=== PATIENT | male | born 1950 | race Hispanic/Latino ===

== ENCOUNTER 2021-12-01 21:04 | Inpatient (IN) | payer OTHER ==
[~2021-12-01] VITALS: Ht 162.6 cm; Wt 57.0 kg
[2021-12-01 22:15] LABS: ALBUMIN 1.4 g/dL (3.5-5.0); CREATININE 1.1 mg/dL (0.5-1.5); TOTAL PROTEIN, SERUM 6.3 g/dL (6.0-8.3)
[2021-12-01] MEDS ORDERED: DEXTROSE 50%-WATER 50 ML DISP.SYRIN IV ONE (22:22)
[2021-12-01 22:24] LABS: BASOPHILS % (AUTO) 0.1 % (0.0-5.0); EOSINOPHILS % (AUTO) 0.1 % (0.0-8.0); HEMATOCRIT 28.2 % (42-54); LYMPHOCYTES % (AUTO) 7.2 % (21.0-51.0); MEAN CORPUSCULAR HEMOGLOBIN 34.3 pg (27.0-33.0); MEAN CORPUSCULAR HGB CONC 33.7 g/dL (32.0-36.0); MEAN CORPUSCULAR VOLUME 101.8 fL (79-99); MONOCYTES % (AUTO) 3.4 % (3.0-13.0); NUCLEATED RED BLOOD CELLS 0.7 % (0.0-0.19); PLATELET COUNT (AUTO) 239 K/uL (130-400); RED BLOOD CELL COUNT(AUTO) 2.77 MIL/uL (4.50-6.20); RED CELL DISTRIBUTION WIDTH 25.3 % (11.0-15.5); WHITE BLOOD COUNT (AUTO) 9.2 K/uL (4.8-10.8)
[2021-12-01] MEDS ORDERED: 0.9%NACL 1000ML 1,000 ML IV ONE (22:55)
[2021-12-01] MEDS ORDERED: ZOSYN 3.375GM +NS 50ML IV ONE (22:56)
[2021-12-01] MEDS ORDERED: ONDANSETRON 4MG INJ IVP PRN (23:30)
[2021-12-02] MEDS: ZOSYN 3.375GM +NS 50ML IV SCH ×3 (00:03→15:40)
[2021-12-02] MEDS: 0.9%NACL 1000ML 1,000 ML IV SCH ×2 (00:03→13:24)
[2021-12-02 01:00] VITALS: BP 117/70
[2021-12-02 04:00] VITALS: BP 102/70
[2021-12-02 06:34] LABS: BASOPHILS % (AUTO) 0.1 % (0.0-5.0); EOSINOPHILS % (AUTO) 0.1 % (0.0-8.0); HEMATOCRIT 25.6 % (42-54); LYMPHOCYTES % (AUTO) 6.5 % (21.0-51.0); MEAN CORPUSCULAR HEMOGLOBIN 34.5 pg (27.0-33.0); MEAN CORPUSCULAR VOLUME 101.6 fL (79-99); MONOCYTES % (AUTO) 2.7 % (3.0-13.0); NEUTROPHILS % (AUTO) 88.7 % (40.0-77.0); NUCLEATED RED BLOOD CELLS 0.8 % (0.0-0.19); PLATELET COUNT (AUTO) 205 K/uL (130-400); RED BLOOD CELL COUNT(AUTO) 2.52 MIL/uL (4.50-6.20); RED CELL DISTRIBUTION WIDTH 25.3 % (11.0-15.5); WHITE BLOOD COUNT (AUTO) 8.9 K/uL (4.8-10.8)
[2021-12-02 06:41] LABS: POTASSIUM 3.6 mmol/L (3.5-5.1)
[2021-12-02 08:00] VITALS: BP 109/68
[2021-12-02 11:55] VITALS: BP 97/53
[2021-12-02 12:58] LABS: INR 1.43 (0.85-1.15); PROTHROMBIN TIME 15.3 SEC (9.6-11.6)
[2021-12-02 13:00] LABS: PARTIAL THROMBOPLASTIN TIME 42.1 SEC (26.3-35.5)
[2021-12-02] MEDS ORDERED: PHARMACY COMMUNICATION MISC SCH (13:00)
[2021-12-02] MEDS ORDERED: ALBUMIN (HUMAN) 25% 100 ML IV ONE (13:00)
[2021-12-02] MEDS: IPRATROPIUM/ALBUTEROL SULFATE 3 ML SOLUTION IH SCH ×3 (13:20→23:28)
[2021-12-02] MEDS: NYSTATIN 100000 UNIT/ML 5ML UDCUP PO SCH ×3 (13:24→20:46)
[2021-12-02] MEDS: MIDODRINE HCL 5 MG TABLET PO SCH ×2 (14:49→20:46)
[2021-12-02 16:00] VITALS: BP 106/64
[2021-12-02] MEDS: MORPHINE 2 MG SYG IVP PRN (16:53)
[2021-12-02] MEDS ORDERED: SODI1TAB4 PO (17:59)
[2021-12-02] MEDS ORDERED: OMEP20CA12 PO (17:59)
[2021-12-02] MEDS ORDERED: AXIT5TAB PO (18:00)
[2021-12-02] MEDS ORDERED: CARV6.25 PO (18:00)
[2021-12-02] MEDS ORDERED: FURO40TA5 PO (18:01)
[2021-12-02 20:00] VITALS: BP 125/61
[2021-12-02] MEDS: DRONABINOL 2.5 MG CAP PO SCH (20:45)
[2021-12-02] MEDS: LACTULOSE 20 GM/30 ML UDCUP PO SCH (20:45)
[2021-12-02 22:04] LABS: APPEARANCE,URINE CLOUDY (CLEAR); BILIRUBIN,URINE LARGE (NEGATIVE); COLOR,URINE AMBER (YELLOW); GLUCOSE, URINE (UA) 100 mg/dL (NEGATIVE); KETONES,URINE 5 mg/dL (NEGATIVE); LEUKOCYTE ESTERASE ,URINE NEGATIVE (NEGATIVE); NITRATE,URINE NEGATIVE (NEGATIVE); OCCULT BLOOD,URINE SMALL (NEGATIVE); PH,URINE 5.5 (5.0-8.0); PROTEIN,URINE 30 mg/dL (NEGATIVE)
[2021-12-02 22:10] LABS: AMORPHOUS SEDIMENT,UR Rare /LPF (None Seen); BACTERIA,URINE Few /HPF (None Seen); RBC,URINE 0-1 /HPF (0-1); SQUAMOUS EPITHELIAL CELL,UR Rare /HPF (0-2); WBC,URINE 0-1 /HPF (0-1)
[2021-12-03] VITALS: BP 103/48
[2021-12-03] MEDS: ZOSYN 3.375GM +NS 50ML IV SCH ×4 (00:02→21:50)
[2021-12-03] MEDS: MORPHINE 2 MG SYG IVP PRN ×2 (00:07→16:15)
[2021-12-03 04:00] VITALS: BP 113/55
[2021-12-03] MEDS: 0.9%NACL 1000ML 1,000 ML IV SCH (04:08)
[2021-12-03 05:11] LABS: HEMATOCRIT 25.7 % (42-54); MEAN CORPUSCULAR HEMOGLOBIN 33.7 pg (27.0-33.0); MEAN CORPUSCULAR HGB CONC 33.1 g/dL (32.0-36.0); RED BLOOD CELL COUNT(AUTO) 2.52 MIL/uL (4.50-6.20); RED CELL DISTRIBUTION WIDTH 25.6 % (11.0-15.5); WHITE BLOOD COUNT (AUTO) 12.4 K/uL (4.8-10.8)
[2021-12-03 05:37] LABS: ALBUMIN 1.3 g/dL (3.5-5.0); CREATININE 1.2 mg/dL (0.5-1.5); POTASSIUM 3.5 mmol/L (3.5-5.1); TOTAL PROTEIN, SERUM 6.1 g/dL (6.0-8.3)
[2021-12-03] MEDS ORDERED: DEXTROSE 50%-WATER 50 ML DISP.SYRIN IV ONE (05:41)
[2021-12-03] MEDS ORDERED: GLUCAGON 1MG KIT 1 MG ML IM PRN (06:00)
[2021-12-03] MEDS: DEXTROSE 50%-WATER 50 ML DISP.SYRIN IV PRN (06:07)
[2021-12-03] MEDS: IPRATROPIUM/ALBUTEROL SULFATE 3 ML SOLUTION IH SCH ×4 (06:39→23:18)
[2021-12-03 06:43] LABS: ABG BASE EXCESS 1.6 mmol/L (-2.0-3.0); ABG HCO3 26.2 mmol/L (21.0-28.0); ABG OXYGEN SATURATION 91.3 % (95.0-99.0); ABG PCO2 41 mmHg (35-48)
[2021-12-03 08:00] VITALS: BP 106/73
[2021-12-03] MEDS: LACTULOSE 20 GM/30 ML UDCUP PO SCH ×2 (08:52→21:00)
[2021-12-03] MEDS: NYSTATIN 100000 UNIT/ML 5ML UDCUP PO SCH ×4 (08:53→21:49)
[2021-12-03] MEDS: DRONABINOL 2.5 MG CAP PO SCH (08:53)
[2021-12-03] MEDS: MIDODRINE HCL 5 MG TABLET PO SCH (08:53)
[2021-12-03] MEDS: DEXTROSE 5 % AND 0.9 % NACL 1,000 ML IV SCH ×2 (08:59→21:20)
[2021-12-03 12:00] VITALS: BP 102/71
[2021-12-03] MEDS ORDERED: METOPROLOL TARTRATE 1 MG/ML 5ML VIAL IV PRN (12:30)
[2021-12-03 16:00] VITALS: BP 101/71
[2021-12-03 20:51] VITALS: BP 109/69
[2021-12-04] VITALS (8 sets, daily range): BP systolic 93–146; BP diastolic 60–112
[2021-12-04 05:36] LABS: HEMATOCRIT 24.4 % (42-54); MEAN CORPUSCULAR HEMOGLOBIN 35.5 pg (27.0-33.0); MEAN CORPUSCULAR VOLUME 104.3 fL (79-99); NUCLEATED RED BLOOD CELLS 1.1 % (0.0-0.19); RED BLOOD CELL COUNT(AUTO) 2.34 MIL/uL (4.50-6.20); WHITE BLOOD COUNT (AUTO) 12.4 K/uL (4.8-10.8)
[2021-12-04] MEDS: ZOSYN 3.375GM +NS 50ML IV SCH ×2 (06:07→15:52)
[2021-12-04 06:11] LABS: ALBUMIN 1.2 g/dL (3.5-5.0); CREATININE 1.3 mg/dL (0.5-1.5); POTASSIUM 3.2 mmol/L (3.5-5.1); TOTAL PROTEIN, SERUM 5.9 g/dL (6.0-8.3)
[2021-12-04] MEDS: IPRATROPIUM/ALBUTEROL SULFATE 3 ML SOLUTION IH SCH ×3 (06:36→18:55)
[2021-12-04] MEDS: PANTOPRAZOLE 40 MG/VIAL IVP SCH (08:33)
[2021-12-04] MEDS: LACTULOSE 20 GM/30 ML UDCUP PO SCH ×2 (08:36→21:00)
[2021-12-04] MEDS: NYSTATIN 100000 UNIT/ML 5ML UDCUP PO SCH ×4 (09:47→21:33)
[2021-12-04] MEDS: MORPHINE 2 MG SYG IVP PRN ×2 (09:48→21:45)
[2021-12-04] MEDS: DEXTROSE 5 % AND 0.9 % NACL 1,000 ML IV SCH (15:57)
[2021-12-05] VITALS (8 sets, daily range): BP systolic 85–114; BP diastolic 57–76
[2021-12-05] MEDS: IPRATROPIUM/ALBUTEROL SULFATE 3 ML SOLUTION IH SCH ×4 (00:19→18:29)
[2021-12-05] MEDS: ZOSYN 3.375GM +NS 50ML IV SCH ×3 (00:23→15:49)
[2021-12-05] MEDS: DEXTROSE 5 % AND 0.9 % NACL 1,000 ML IV SCH (04:36)
[2021-12-05 05:40] LABS: BASOPHILS % (AUTO) 0.1 % (0.0-5.0); EOSINOPHILS % (AUTO) 0.1 % (0.0-8.0); LYMPHOCYTES % (AUTO) 3.6 % (21.0-51.0); MEAN CORPUSCULAR HEMOGLOBIN 34.4 pg (27.0-33.0); MEAN CORPUSCULAR HGB CONC 32.5 g/dL (32.0-36.0); MEAN CORPUSCULAR VOLUME 106.1 fL (79-99); MONOCYTES % (AUTO) 1.8 % (3.0-13.0); NEUTROPHILS % (AUTO) 90.4 % (40.0-77.0); NUCLEATED RED BLOOD CELLS 1.3 % (0.0-0.19); PLATELET COUNT (AUTO) 198 K/uL (130-400); RED CELL DISTRIBUTION WIDTH 25.8 % (11.0-15.5); WHITE BLOOD COUNT (AUTO) 13.8 K/uL (4.8-10.8)
[2021-12-05 05:42] LABS: HEMATOCRIT 19.1 % (42-54)
[2021-12-05 05:55] LABS: ALBUMIN 1.1 g/dL (3.5-5.0); CREATININE 1.6 mg/dL (0.5-1.5); MAGNESIUM 2.4 mg/dL (1.80-2.40); POTASSIUM 4.1 mmol/L (3.5-5.1); TOTAL PROTEIN, SERUM 5.3 g/dL (6.0-8.3)
[2021-12-05] MEDS: PANTOPRAZOLE 40 MG/VIAL IVP SCH (08:22)
[2021-12-05] MEDS: LACTULOSE 20 GM/30 ML UDCUP PO SCH ×2 (08:23→21:00)
[2021-12-05] MEDS: NYSTATIN 100000 UNIT/ML 5ML UDCUP PO SCH ×4 (08:23→21:00)
[2021-12-05] MEDS ORDERED: SODIUM CL 4MEQ/ML 30ML 154 MEQ in DEXTROSE 10%-WATER 961.5 ML IV SCH (09:30)
[2021-12-05] MEDS: DEXTROSE 10%-WATER 1,000 ML IV SCH (10:30)
[2021-12-05] MEDS: MORPHINE 2 MG SYG IVP PRN ×2 (14:28→17:18)
[2021-12-05] MEDS ORDERED: VANCOMYCIN PROTOCOL PER PHARMACY IV SCH (16:30)
[2021-12-05] MEDS ORDERED: VANCOMYCIN 1G/250ML KIT 250 ML IV ONE (17:00)
[2021-12-05] MEDS ORDERED: M.V.I. IV [ADULT] 10 ML, MULTITRACE-4 ADULT 10ML VIAL 3 ML in CLINIMIX-E 5%AA /D15%W 2... IV ONE (18:00)
[2021-12-06] VITALS (21 sets, daily range): BP systolic 73–99; BP diastolic 38–57
[2021-12-06] MEDS: MORPHINE 2 MG SYG IVP PRN (00:50)
[2021-12-06] MEDS ORDERED: [UNRECOGNIZED DRUG - OTHER] IV ONE (04:30)
[2021-12-06 06:17] LABS: BASOPHILS % (AUTO) 0.2 % (0.0-5.0); EOSINOPHILS % (AUTO) 0.1 % (0.0-8.0); HEMATOCRIT 31.2 % (42-54); LYMPHOCYTES % (AUTO) 2.9 % (21.0-51.0); MEAN CORPUSCULAR HEMOGLOBIN 32.2 pg (27.0-33.0); MEAN CORPUSCULAR HGB CONC 34.3 g/dL (32.0-36.0); MONOCYTES % (AUTO) 1.7 % (3.0-13.0); NEUTROPHILS % (AUTO) 89.9 % (40.0-77.0); NUCLEATED RED BLOOD CELLS 5.1 % (0.0-0.19); PLATELET COUNT (AUTO) 89 K/uL (130-400); RED BLOOD CELL COUNT(AUTO) 3.32 MIL/uL (4.50-6.20); RED CELL DISTRIBUTION WIDTH 21.2 % (11.0-15.5); WHITE BLOOD COUNT (AUTO) 17.4 K/uL (4.8-10.8)
[2021-12-06] MEDS: IPRATROPIUM/ALBUTEROL SULFATE 3 ML SOLUTION IH SCH ×2 (06:55→11:28)
[2021-12-06 06:56] LABS: ALBUMIN 1.1 g/dL (3.5-5.0); BAND NEUTROPHILS % (MANUAL) 2 % (0-2); CREATININE 2.2 mg/dL (0.5-1.5); LYMPHOCYTES % (MANUAL) 6 % (22-44); MAN.DIFF COMMENT-IMPRESSION MANUAL DIFFERENTIAL; MONOCYTES % (MANUAL) 3 % (2-9); PLATELET MORPHOLOGY COMMENT ADEQUATE; POTASSIUM 5.5 mmol/L (3.5-5.1); SEGMENTED NEUTROPHILS % 89 % (40-70); TOTAL PROTEIN, SERUM 5.3 g/dL (6.0-8.3)
[2021-12-06] MEDS ORDERED: ALBUMIN (HUMAN) 25% 50 ML IV SCH (08:00)
[2021-12-06] MEDS ORDERED: ALBUMIN (HUMAN) 25% 100 ML IV SCH (08:00)
[2021-12-06] MEDS: NYSTATIN 100000 UNIT/ML 5ML UDCUP PO SCH ×3 (09:00→17:00)
[2021-12-06] MEDS: LACTULOSE 20 GM/30 ML UDCUP PO SCH (09:00)
[2021-12-06] MEDS: PANTOPRAZOLE 40 MG/VIAL IVP SCH (09:20)
[2021-12-06] MEDS ORDERED: FAT EMULSIONS 20% 250ML 250 ML IV SCH (10:00)
[2021-12-06] MEDS: DEXTROSE 10%-WATER 1,000 ML IV SCH (10:30)
[2021-12-06] MEDS ORDERED: PHARMACY COMMUNICATION MISC SCH (13:00)
[2021-12-06] MEDS ORDERED: SODIUM BICARB 50MEQ 50ML VIAL IV SCH (14:34)
[2021-12-06] MEDS ORDERED: CALCIUM GLUC 1GM/10ML VIAL IV SCH (14:34)
[2021-12-06] MEDS ORDERED: DEXTROSE 50%-WATER 50 ML DISP.SYRIN IV SCH (14:34)
[2021-12-06] MEDS: ALBUMIN (HUMAN) 25% 100 ML IV SCH ×2 (14:42→17:18)
[2021-12-06] MEDS ORDERED: INSULIN HUMULIN R 100 UNIT/ML 3ML IV SCH (14:57)
[2021-12-06] MEDS ORDERED: NOREPINEPHRIN 4MG/NS 250ML 250 ML IV SCH (15:00)
[2021-12-06] MEDS: DEXTROSE 50%-WATER 50 ML DISP.SYRIN IV PRN (15:11)
[2021-12-06 15:36] LABS: PARTIAL THROMBOPLASTIN TIME 83.9 SEC (26.3-35.5)
[2021-12-06 15:56] LABS: INR > 7.00 (0.85-1.15); PROTHROMBIN TIME > 63.0 SEC (9.6-11.6)
[2021-12-06] MEDS ORDERED: VANCOMYCIN 750MG VIAL IVPB SCH (17:00)
[2021-12-06] MEDS ORDERED: 0.9%NACL 1000ML 1,776 ML IV ONE (17:00)
[2021-12-06] MEDS ORDERED: HYDROMORPHONE 0.5 MG SYG (0.5MG/0.5ML) IVP PRN (18:30)
[2021-12-06 19:43] LABS: INR 5.5 (0.85-1.15)
[2021-12-06 19:44] LABS: PARTIAL THROMBOPLASTIN TIME 111.6 SEC (26.3-35.5)
== END 2021-12-06 19:13 | DRG 177 ==
LOC: EDH 21:04 → EDHIP 21:05 → UNDOADMIN 21:05 → EDHIP 23:27 → 3AH 12-02 00:50 → EDHIP 12-02 00:50 → 2BH 12-06 12:15
PROVIDERS: ADMIT Internal Medicine Hematology & Oncology; ATTEND Internal Medicine Hematology & Oncology
PROC: 30233N1 Transfusion of Nonautologous Red Blood Cells into Peripheral Vein, Percutaneous Approach (ICD-10-PCS; principal; 2021-12-05)
DX: J69.0 Pneumonitis due to inhalation of food and vomit (principal); E43 Unspecified severe protein-calorie malnutrition; D84.9 Immunodeficiency, unspecified; R64 Cachexia; J44.0 Chronic obstructive pulmonary disease with (acute) lower respiratory infection; Z16.24 Resistance to multiple antibiotics; N17.9 Acute kidney failure, unspecified; C80.1 Malignant (primary) neoplasm, unspecified; D50.9 Iron deficiency anemia, unspecified; R62.7 Adult failure to thrive; K72.90 Hepatic failure, unspecified without coma; E86.0 Dehydration; E16.2 Hypoglycemia, unspecified; I10 Essential (primary) hypertension; R13.12 Dysphagia, oropharyngeal phase; K74.60 Unspecified cirrhosis of liver; E87.5 Hyperkalemia; Z85.05 Personal history of malignant neoplasm of liver; Z68.21 Body mass index [BMI] 21.0-21.9, adult
CPT/HCPCS: 36415; 36430; 36600; 70450; 71045; 71250; 74018; 74176; 74230; 76705; 80048; 80053; 81001; 82140; 82435; 82533; 82803; 82947; 82948; 83605; 83735; 83880; 84132; 84145; 84295; 84484; 85018; 85025; 85027; 85378; 85384; 85610; 85730; 86850; 86900; 86901; 86922; 86923; 87040; 87071; 87077; 87088; 87186; 87205; 92526; 92610; 92611; 93005; 94640; 94664; 94668; C9113; G0378; J0610; J1815; J2543; J3370; J3490; J7030; J7042; J7070; J7131; P9016; P9046